=== PATIENT | female | born 1990 | race Caucasian/White ===

== ENCOUNTER 2019-09-20 13:29 | Inpatient (IN) | payer MEDICAID ==
[~2019-09-20] VITALS: Ht 165.1 cm; Wt 70.0 kg
[2019-09-20 14:44] VITALS: Ht 165.1 cm; Wt 70.0 kg
[2019-09-20 16:22] LABS: BASOPHIL % 0.4 % (0-2)
[2019-09-20 16:25] LABS: PLATELET COUNT 448 x10^3mcL (130-400); RED CELL DISTRIBUTION WIDTH 18.6 % (11.5-14.5)
[2019-09-20 16:35] LABS: CALCIUM 9.5 mg/dL (8.5-10.1); CHLORIDE SERUM 100 mmol/L (98-107); CREATININE SERUM 0.7 mg/dL (0.6-1.0); GFR1 > 60 mL/min; GLUCOSE SERUM 121 mg/dL (74-106); POTASSIUM SERUM 3.6 mmol/L (3.5-5.1); SODIUM SERUM 137 mmol/L (136-145)
[2019-09-20 16:40] LABS: ALBUMIN 3.7 g/dL (3.4-5.0); ALKALINE PHOSPHATASE 128 U/L (46-116); ALT/SGPT 16 U/L (14-59); AST/SGOT 6 U/L (15-37); BILIRUBIN TOTAL 0.86 mg/dL (0.20-1.00); LIPASE 86 IU/L (73-393); TOTAL PROTEIN, SERUM 9.2 g/dL (6.4-8.2)
[2019-09-20 17:51] LABS: UA SPECIFIC GRAVITY >=1.030 (1.005-1.035); microscopic required? YES; urine erythrocyte NEGATIVE (NEGATIVE)
[2019-09-20 22:06] LABS: AMPHETAMINE QUAL UR POSITIVE (See below)
[2019-09-20 22:15] VITALS: BP 124/88
[2019-09-20 22:54] VITALS: BP 135/83
[2019-09-21 03:40] VITALS: BP 139/92
[2019-09-21 06:05] VITALS: BP 132/89
[2019-09-21 07:08] LABS: CALCIUM 7.8 mg/dL (8.5-10.1); CARBON DIOXIDE 24.7 mmol/L (21-32); CHLORIDE SERUM 106 mmol/L (98-107); CREATININE SERUM 0.6 mg/dL (0.6-1.0); GFR1 > 60 mL/min; GLUCOSE SERUM 97 mg/dL (74-106); MAGNESIUM 1.9 mg/dL (1.8-2.4); PHOSPHOROUS 2.4 mg/dL (2.5-4.9); POTASSIUM SERUM 3.6 mmol/L (3.5-5.1); SODIUM SERUM 141 mmol/L (136-145)
[2019-09-21 08:07] LABS: BASOPHIL % 0.4 % (0-2); PLATELET COUNT 335 x10^3mcL (130-400)
[2019-09-21 08:20] LABS: RED CELL DISTRIBUTION WIDTH 18.4 % (11.5-14.5)
[2019-09-21 08:55] VITALS: BP 137/87
[2019-09-21 17:30] VITALS: BP 142/89
[2019-09-21 20:51] VITALS: BP 114/72
[2019-09-22 05:20] VITALS: BP 126/89
[2019-09-22 06:34] LABS: BASOPHIL % 0.1 % (0-2); PLATELET COUNT 365 x10^3mcL (130-400)
[2019-09-22 06:46] LABS: RED CELL DISTRIBUTION WIDTH 17.8 % (11.5-14.5)
[2019-09-22 07:08] LABS: CALCIUM 8.6 mg/dL (8.5-10.1); CARBON DIOXIDE 26.6 mmol/L (21-32); CHLORIDE SERUM 103 mmol/L (98-107); CREATININE SERUM 0.6 mg/dL (0.6-1.0); GFR1 > 60 mL/min; GLUCOSE SERUM 124 mg/dL (74-106); POTASSIUM SERUM 4.3 mmol/L (3.5-5.1); SODIUM SERUM 138 mmol/L (136-145)
[2019-09-22 08:45] VITALS: BP 118/82
[2019-09-22] MEDS ORDERED: LEVOFLOXACIN500 M1 PO (11:25)
[2019-09-22 12:41] VITALS: BP 118/82
== END 2019-09-22 15:43 | disposition home or self-care (01) | DRG 710 ==
LOC: ED 13:29 → MU 21:02
PROVIDERS: Emergency Medicine; Internal Medicine; Surgery; ADMIT Internal Medicine
PROC: 0DTJ4ZZ Resection of Appendix, Percutaneous Endoscopic Approach (ICD-10-PCS; principal; 2019-09-21 18:30)
DX: A41.9 Sepsis, unspecified organism (principal); G92 Toxic encephalopathy; K35.80 Unspecified acute appendicitis; F15.10 Other stimulant abuse, uncomplicated; N39.0 Urinary tract infection, site not specified; K52.9 Noninfective gastroenteritis and colitis, unspecified; R73.9 Hyperglycemia, unspecified; Z68.30 Body mass index [BMI] 30.0-30.9, adult
CPT/HCPCS: G0378; J0744; J1885; J2270; J2405; J2543; J2704; J2710; J3010; J3490; J7030; J7120; Q0092; Q9967

== ENCOUNTER 2019-11-17 22:21 | Emergency (ER) | payer OTHER ==
[~2019-11-17] VITALS: Ht 160 cm; Wt 65.0 kg
[~2019-11-17 22:21] MED LIST: LEVOFLOXACIN500 M1 PO
[2019-11-17 22:35] VITALS: BP 144/100; Ht 160 cm; Wt 65.0 kg
== END 2019-11-17 23:24 | disposition left against medical advice (07) ==
LOC: ED 22:21
DX: Z53.21 Procedure and treatment not carried out due to patient leaving prior to being seen by health care provider (principal)